=== PATIENT | male | born 1960 ===

== ENCOUNTER → 2018-07-29 14:10 | Outpatient (CLI) | payer OTHER | END | disposition home or self-care (01) | LOC: LAB 14:10 | DX: C61 Malignant neoplasm of prostate (principal) ==

== ENCOUNTER 2019-01-27 14:17 | Outpatient (CLI) | payer OTHER | END 2019-01-27 14:21 | disposition home or self-care (01) | LOC: LAB 14:17 | DX: C61 Malignant neoplasm of prostate (principal) ==

== ENCOUNTER → 2019-07-28 10:00 | Outpatient (CLI) | payer OTHER | END | disposition home or self-care (01) | LOC: LAB 10:00 | DX: C61 Malignant neoplasm of prostate (principal) ==

== ENCOUNTER 2020-03-15 13:10 | Outpatient (CLI) | payer OTHER | END 2020-03-15 13:24 | disposition home or self-care (01) | LOC: LAB 13:10 | DX: C61 Malignant neoplasm of prostate (principal) ==

== ENCOUNTER 2020-09-16 09:38 | Outpatient (CLI) | payer OTHER | END 2020-09-16 09:45 | disposition home or self-care (01) | LOC: LAB 09:38 | PROVIDERS: ATTEND Urology | DX: C61 Malignant neoplasm of prostate (principal) ==

== ENCOUNTER 2021-03-17 10:32 | Outpatient (CLI) | payer OTHER | END 2021-03-17 13:36 | disposition home or self-care (01) | LOC: LAB 10:32 | PROVIDERS: ATTEND Urology | DX: R97.1 Elevated cancer antigen 125 [CA 125] (principal); R97.20 Elevated prostate specific antigen [PSA] ==

== ENCOUNTER → 2021-09-22 09:49 | Outpatient (CLI) | payer OTHER | END | disposition home or self-care (01) | LOC: LAB 09:49 | PROVIDERS: ATTEND Urology | DX: C61 Malignant neoplasm of prostate (principal) ==

== ENCOUNTER 2022-03-30 10:10 | Outpatient (CLI) | payer OTHER | END 2022-03-30 10:14 | disposition home or self-care (01) | LOC: LAB 10:10 | PROVIDERS: ATTEND Urology | DX: C61 Malignant neoplasm of prostate (principal) ==

== ENCOUNTER 2022-04-04 09:53 | Outpatient (CLI) | payer OTHER | END 2022-04-04 10:05 | disposition home or self-care (01) | LOC: LAB 09:53 | PROVIDERS: ATTEND Urology | DX: R97.20 Elevated prostate specific antigen [PSA] (principal) ==

== ENCOUNTER 2022-04-28 07:58 | Outpatient (CLI) | payer OTHER | END 2022-04-28 07:59 | disposition home or self-care (01) | LOC: SONOGRAMA 07:58 | PROVIDERS: ATTEND Urology | DX: R97.20 Elevated prostate specific antigen [PSA] (principal); C61 Malignant neoplasm of prostate ==

== ENCOUNTER 2023-10-15 09:26 | Outpatient (CLI) | payer OTHER | END 2023-10-15 09:29 | disposition home or self-care (01) | LOC: LAB 09:26 | PROVIDERS: ATTEND Urology | DX: C61 Malignant neoplasm of prostate (principal) ==